=== PATIENT | female | born 1985 | race Caucasian/White ===

== ENCOUNTER 2017-01-19 15:28 | Emergency (ER) | payer SELFPAY ==
[~2017-01-19] VITALS: Ht 160 cm; Wt 70.5 kg
[2017-01-19 15:30] VITALS: Ht 160 cm; Wt 70.5 kg
--- NOTE | 2017-01-19 16:17 | ERA ---
ER Documentation Chief Complaint Date/Time DATE: 01/19/17 TIME: 16:12 Chief Complaint lt wrist pain HPI Patient is a 31-year-old female presenting with with a chief complaint of left wrist pain. Patient was walking dog last night when the dog pulled patient away jerking her left hand. Patient has had persistent pain and describes the pain as dull and aching. Patient's pain currently is a 6-7 out of 10 at time of injury was a 9 out of 10. Patient has taken Advil with minimal relief. Patient denies any numbness tingling or neuro changes in the distal fingers. Patient denies snuffbox tenderness. Patient denies loss of motion. There are no other associated manifestations at this time. ROS All systems reviewed and are negative except as per history of present illness. Medications Home Meds Active Scripts Ibuprofen* (Motrin*) 400 Mg Tab, 400 MG PO Q6, #30 TAB Prov:CHELSEA ROSARIO PA-C 01/19/17 Physical Exam Vitals Vital Signs Date Time Temp Pulse Resp B/P Pulse Ox O2 Delivery O2 Flow Rate FiO2 01/19/17 15:30 98.0 73 16 133/91 100 Physical Exam Const: Well-appearing 31-year-old female who is well-developed and in no acute distress. Head: Atraumatic Eyes: Normal Conjunctiva ENT: Normal External Ears, Nose and Mouth. Neck: Full range of motion..~ No meningismus. Resp: Clear to auscultation bilaterally Cardio: Regular rate and rhythm, no murmurs Abd: Soft, non tender, non distended. Normal bowel sounds Skin: No petechiae or rashes Back: No midline or flank tenderness Ext: No cyanosis, or edema. Capillary refill within normal limits. Range of motion of right digits are within normal limits. Range of motion of left digits are reduced secondary to pain. Minimal swelling over the medial aspect of left wrist and proximal hand. No snuffbox tenderness. Neur: Awake and alert. Neurovascularly intact bilaterally. Psych: Normal Mood and Affect Procedures/MDM 31-year-old female with chief complaint of left wrist pain status post traction injury 20 hours ago. Patient denies . Patient denies loss of sensation, numbness, tingling, loss of motor or trauma to other areas of the body. Patient refuses pain medication at this time. We will get a test before x-rays. test was negative. Will get x-rays of the left wrist and left hand. X-ray of the left wrist and hand were unremarkable. Although left hand x-ray did reveal soft tissue swelling. At this time I am unable to rule out tendon or ligamentous injuries. Thus, the pt was given recommendations to follow up with ortho and advised to follow up with their PCP in the next 1-2 days to be formally referred to, and further evaluated for soft tissue injuries, by an senior computer specialist. Pt will be discharged with an NSAID to control the pain. Patient will be equipped with a Velcro wrist splint before discharge. Have discussed RICE therapy with patient. Departure Diagnosis: Primary Impression: Wrist injury Qualified Code: S69.92XA - Wrist injury, left, initial encounter Additional Impressions: Pain in wrist Qualified Code: M25.532 - Left wrist pain Other wrist sprain and strain Condition: Stable Additional Instructions: Follow up with your PCP within the next 1-3 days for a more thorough evaluation and a possible referral to a specialist. Return the the emergency department immediately if symptoms worsen or change. If you have any questions regarding medications, ask your pharmacist or us before you leave. If any adverse reactions occur while taking your medications, discontinue the treatment and return to the emergency department immediately. Take your medications as directed, and complete the entire course of treatment. CHELSEA ROSARIO PA-C Jan 19, 2017 16:17
--- NOTE | 2017-01-19 16:58 | RADRPT ---
PROCEDURE: XR Wrist. CLINICAL INDICATION: Injury. Possible fracture. TECHNIQUE: AP, lateral and oblique views of the left wrist were performed. COMPARISON: No prior studies are available for comparison. FINDINGS: No evidence of fracture, dislocation, or subluxation is seen. The bones appear well mineralized. The joint spaces are well preserved. The soft tissues appear intact. RPTAT:HJJR IMPRESSION: Unremarkable exam of the left wrist. Physician Blu Date Time Electronically viewed and signed by Tim Flor Physician on 01/19/2017 16:58 JR/
--- NOTE | 2017-01-19 17:00 | RADRPT ---
PROCEDURE: XR Hand. CLINICAL INDICATION: Trauma, pain TECHNIQUE: AP, oblique, and lateral views of the left hand were obtained. COMPARISON: No prior studies are available for comparison. FINDINGS: The bones of the hand appear intact, with no evidence of fracture, dislocation, or subluxation. The joint spaces are preserved. Bone mineralization is normal. There is soft tissue swelling over the ul donna styloid region. IMPRESSION: 1. No visualized acute fracture or dislocation. 2. Soft tissue swelling overlying the distal ulna. RPTAT: HBST .Max Mejia MD, MD Date Time Electronically viewed and signed by .Max Mejia MD, on 01/19/2017 17:00 .T/
[2017-01-19] MEDS ORDERED: IBUP400T22 PO (17:03)
== END 2017-01-19 17:40 | disposition home or self-care (01) ==
LOC: FTE 15:28
DX: S69.92XA Unspecified injury of left wrist, hand and finger(s), initial encounter (principal); X50.9XXA Other and unspecified overexertion or strenuous movements or postures, initial encounter; Y92.9 Unspecified place or not applicable